=== PATIENT | female | born 1980 | race Caucasian/White ===

== ENCOUNTER 2018-03-10 18:16 | Emergency (ER) | payer BC ==
[2018-03-10 18:23] VITALS: BP 103/72; BMI 21.0
[2018-03-10 18:47] LABS: BILIRUBIN,URINE NEGATIVE (NEGATIVE); BLOOD/HEMOGLOBIN,URINE 3+ (NEGATIVE); GLUCOSE, URINE NEGATIVE (NEGATIVE); KETONES,URINE NEGATIVE (NEGATIVE); LEUKOCYTE ESTERASE ,URINE 1+ (NEGATIVE); NITRITES,URINE NEGATIVE (NEGATIVE); PROTEIN,URINE NEGATIVE (NEGATIVE); UROBILINOGEN,URINE NORMAL (NORMAL)
[2018-03-10] MEDS ORDERED: DEMEROL INJ IM ONE (19:05)
[2018-03-10] MEDS ORDERED: ZOFRAN INJ 4 MG VIAL IM ONE (19:05)
--- NOTE | 2018-03-10 19:06 | DR.GENAD ---
HPI - PCP Primary Care Physician: JUD - HPI Comment HPI Comment: PATIENT SIT A LOT AT WORK. - Complaint/Symptoms Chief Complaint Doctors Comments: RECTAL PAIN, THROMBOSE HEMORRHOID NOTED TODAY. Chief Complaint:: PT STATES" I STARTED HAVING PAIN IN MY RECTUM I HAVE SOMETHING COMING OUT OF IT" - Nurses notes reviewed Nurses Notes Review: Yes - Source History Provided: Patient - Mode of Arrival Mode of Arrival: Ambulatory - Timing Onset of Chief Complaint: 03/10/18 Came on: Suddenly - Duration Duration: Constant Duration: Hours - Severity Severity: Moderate PMH - PMH Past Medical History: Yes Past Medical History: Anxiety Past Surgical History: Yes Surgical History: SERVICE REPRESENTATIVE Surgery Past Surgical History Comment: BREAT AUGMENTATION - Family History History of Family Medical Conditions: No - Social History Type of Tobacco Use: Cigarettes Does any household member use tobacco: No Alcohol Use: Occasionally Do you use any recreational Drugs:: No Lives With: Family Lives Where: Home - infectious screening In the last 2 months have you had wt loss of >10#?: NO Have you had fever, night sweats or hemotysis?: No Have you traveled outside the country in the last 6 months?: No Isolation: Standard ROS - Review of Systems Constitutional: No Symptoms Reported Eyes: No Symptoms Reported ENTM: No Symptoms Reported Respiratoy: No Symptoms Reported Cardiovascular: No Symptoms Reported Gastrointestinal/Abdominal: No Symptoms Reported Genitourinary: No Symptoms Reported Neurological: No Symptoms Reported Musculoskeletal: No Symptoms Reported Integumentary: Other (THROMBOSE RECTAL HEMORRHOID.) Hematologic/Lymphatic: No Symptoms Reported Endocrine: No Symptoms Reported All Other Systems: Reviewed and Negative PE - Vital Signs Vitals: Temperature 97.9 F Pulse Rate 100 Respiratory Rate 18 Blood Pressure 103/72 O2 Sat by Pulse Oximetry 99 - General Limitations: No Limitations General Appearance: Alert - Head Head Exam: Normal Inspection - Eyes Eye exam: Normal Appearance - ENT ENT Exam: Normal External Ear Exam External Ear Exam: Normal External Inspection TM/Canal Exam: Bilateral Normal Nose Exam: Normal Nose Exam Mouth Exam: Normal Inspection Throat Exam: Normal Inspection - Neck Neck Exam: Trachea Midline - Chest Chest Inspection: Symmetric Chest Wall Rise - Respiratory Respiratory Exam: Normal Lung Sounds Bilat Respiratory Exam: Bilateral Clear to Auscultation - Cardiovascular Cardiovascular Exam: Regular Rate, Normal Rhythm, Normal Heart Sounds - Abdominal Exam Abdominal Exam: Normal Bowel Sounds, Soft, Other (THROMBOSE TECTAL HEMORRHOID WITH PARTIAL PROLAPSE. NO BLEEDING.) - Extremities Extremities Exam: Normal Inspection - Back Back Exam: Normal Inspection - Neurologic Neurological Exam: Alert, Oriented X3 - Psychiatric Psychiatric Exam: Anxious - Skin Skin Exam: Erythema MDM - Additional Information Additional Information Obtained From: Family - Differential Diagnosis Differential Diagnosis: THROMBOSE PARTIAL PROLASE RECTAL HEMORRHOID. Course - Treatment Treatment: SEE ORDERS. - Consultation Consultation Comments: SURGICAL CONSULT. DR. BARR IN ED SEEING PATIENT. HE WILL SEE INHER IN HIS OFFICE IN AM ALSO. - Education/Counseling Education/Counseling: Patient, Family, Education Educated On: Diagnosis, Needs for Follow Up ROR - Labs Reviewed Laboratory: Specimen Type Clean catch urine 03/10/18 18:40 Urine Color Yellow (YELLOW) 03/10/18 18:40 Urine Appearance Clear (CLEAR) 03/10/18 18:40 Urine pH 5.0 (5.0 - 8.0) 03/10/18 18:40 Ur Specific Ethel 1.015 (1.000-1.030) 03/10/18 18:40 Urine Protein Negative (NEGATIVE) 03/10/18 18:40 Urine Glucose (UA) Negative (NEGATIVE) 03/10/18 18:40 Urine Ketones Negative (NEGATIVE) 03/10/18 18:40 Urine Occult Blood 3+ (NEGATIVE) 03/10/18 18:40 Urine Nitrite Negative (NEGATIVE) 03/10/18 18:40 Urine Bilirubin Negative (NEGATIVE) 03/10/18 18:40 Urine Urobilinogen Normal (NORMAL) 03/10/18 18:40 Ur Leukocyte Esterase 1+ (NEGATIVE) 03/10/18 18:40 Urine RBC 0-2 /HPF (NONE SEEN) 03/10/18 18:40 Urine WBC 0-2 /HPF (NONE SEEN) 18 18:40 Ur Squamous Epith Cells Many /HPF (NEGATIVE) 03/10/18 18:40 Ur Renal Epithelial Cell Rare /HPF (NEGATIVE) 03/10/18 18:40 Amorphous Sediment 2+ /HPF (NEGATIVE) 03/10/18 18:40 Urine Bacteria Trace /HPF (NEGATIVE) 03/10/18 18:40 Urine Mucus Moderate /HPF (NEGATIVE) 18 18:40 Ur Culture Indicated? No/not indicated 03/10/18 18:40 - Diagnosis Discharge Problem: Hemorrhoid thrombosis, Hemorrhoid prolapse - Discharge Plan Disposition: 01 HOME, SELF-CARE Condition: Stable Prescriptions: Hydrocodone/Acetaminophen [Redbird 5-325 Tablet] 1 each PO Q6H PRN #15 tablet PRN Reason: Hydrocortisone Supp 25 mg [Anucort-Hc Supp] 25 mg RI BID #24 sup - Follow ups/Referrals Follow ups/Referrals: RITCHIE BARR [STAFF PHYSICIAN] - 1 day (CALL OFFICE FOR APPOINTMENT TOMORROW MORNING ) NFD,None [Primary Care Provider] - 3 days - Instructions Instructions: Hemorrhoids, [id number], Nonsurgical Procedures for Hemorrhoids , Care After, Disposable Sitz Bath Additional Instructions: RETURN TO ED IF WORSE.
[2018-03-10] MEDS ORDERED: ZOFRAN INJ 4 MG VIAL ONE (19:07)
[2018-03-10] MEDS ORDERED: DEMEROL INJ ONE (19:10)
[2018-03-10 19:16] LABS: APPEARANCE,URINE CLEAR (CLEAR); COLOR,URINE YELLOW (YELLOW)
[2018-03-10 19:17] LABS: AMORPHOUS SEDIMENT,UR 2+ /HPF (NEGATIVE); BACTERIA,URINE TRACE /HPF (NEGATIVE); RBC,URINE 0-2 /HPF (NONE SEEN); SQUAMOUS EPITHELIAL CELL,UR MANY /HPF (NEGATIVE)
[2018-03-10 19:18] LABS: MUCUS,URINE MODERATE /HPF (NEGATIVE); RENAL EPITHELIAL CELLS,URINE RARE /HPF (NEGATIVE)
[2018-03-10] MEDS ORDERED: DILAUDID INJ IM ONE (20:46)
[2018-03-10] MEDS ORDERED: DILAUDID INJ ONE (20:46)
== END 2018-03-10 21:13 | disposition home or self-care (01) ==
LOC: ER 18:34
DX: K64.5 Perianal venous thrombosis (principal); K64.8 Other hemorrhoids
CPT/HCPCS: 81001; 96372; 99282; 99283; 99285; J1170; J2175; J2405

== ENCOUNTER 2018-03-14 10:09 | Day surgery (SDC) | payer BC ==
[~2018-03-14 10:09] MED LIST: DIPRIVAN VIAL ONE; MARCAINE SPINAL ONE; VERSED ONE; XYLOCAINE 2 % (PLAIN) ONE; ZOFRAN INJ 4 MG VIAL ONE
[2018-03-14] MEDS ORDERED: LR 1000 ML IV 1,000 ML IV ONE (10:13)
[2018-03-14] MEDS ORDERED: ANCEF 1 GM IV PREMIX* 1 GM/50 ML BAG IV ONE (10:13)
[2018-03-14] MEDS ORDERED: XYLOCAINE-MPF 1% ONE (10:31)
[2018-03-14] MEDS ORDERED: MARCAINE/EPINEPHRINE IJ ONE (10:41)
[2018-03-14 10:49] LABS: SERUM PREGNANCY TEST, QUAL NEGATIVE <10 mIU/mL
[2018-03-14] MEDS ORDERED: REGLAN INJ 10 MG VIAL IVP PRN (11:31)
[2018-03-14] MEDS ORDERED: DILAUDID INJ IVP PRN (11:31)
[2018-03-14] MEDS ORDERED: PHENERGAN INJ 25 MG IVP PRN (11:31)
[2018-03-14] MEDS ORDERED: ZOFRAN INJ 4 MG VIAL IVP PRN (11:31)
[2018-03-14] MEDS ORDERED: BENADRYL INJ 50 MG VIAL IVP PRN (11:31)
[2018-03-14] MEDS ORDERED: PERCOCET TAB 5/325 MG ONE (12:44)
[2018-03-14 13:59] VITALS: BP 106/69
== END 2018-03-14 14:47 | disposition home or self-care (01) ==
LOC: SURG1 10:09
PROVIDERS: ATTEND Surgery
PROC: 06LY0ZC Occlusion of Hemorrhoidal Plexus, Open Approach (ICD-10-PCS; principal; 2018-03-14 10:30)
DX: K64.5 Perianal venous thrombosis (principal)
CPT/HCPCS: 36415; 84703; A4222; S0020; J0690; J2001; J2250; J2405; J3490; J7120